=== PATIENT | female | born 1975 | race Caucasian/White ===

== ENCOUNTER 2017-08-27 19:37 | Emergency (ER) | payer BC ==
[~2017-08-27] VITALS: Ht 154.9 cm; Wt 68.0 kg
[~2017-08-27 19:37] MED LIST: ACET325T53
[2017-08-27 19:50] VITALS: BP 132/86
== END 2017-08-27 21:49 | disposition home or self-care (01) ==
LOC: ER 19:45
DX: J06.9 Acute upper respiratory infection, unspecified (principal)
CPT/HCPCS: 71010; 99283; A4606; Z7610

== ENCOUNTER 2018-05-22 00:52 | Emergency (ER) | payer SELFPAY ==
[~2018-05-22] VITALS: Ht 165.1 cm; Wt 63.5 kg
--- NOTE | 2018-05-22 01:00 | NUR ---
BIB FAMILY C/C OF ABDOMINAL PAIN, BILATERAL FLANK PAIN X 1DAY. AA/OX4. N/V PRESENT. AMBULATED TO HOSPITAL BED WITH STEADY GAIT. NO S/S OF SOB. SKIN PINK, WARM, DRY. VSS. NAD. STABLE CONDITION. FAMILY AT BEDSIDE. WILL CONTINUE TO MONITOR.
[2018-05-22] MEDS ORDERED: ONDANSETRON HCL/PF 4 MG/2 ML VIAL ONE (01:17)
[2018-05-22] MEDS ORDERED: MORPHINE SULFATE INJ 4 MG/ML DISP.SYRIN ONE (01:17)
[2018-05-22] MEDS ORDERED: ONDANSETRON HCL/PF 4 MG/2 ML VIAL IVP ONE (01:30)
[2018-05-22] MEDS ORDERED: IV NS 0.9% 1,000 ML BAG IV ONE (01:30)
[2018-05-22] MEDS ORDERED: MORPHINE SULFATE INJ 2 MG/ML DISP.SYRIN IV ONE (01:30)
[2018-05-22 01:38] LABS: BASOPHILS % (AUTO) 0.3 % (0.0-2.0); EOSINOPHILS % (AUTO) 1.6 % (0.0-6.0); HEMATOCRIT 38 % (33-45); HEMOGLOBIN 12.2 g/dL (11.5-14.8); LYMPHOCYTES # (AUTO) 1.2 /CMM (0.8-4.8); LYMPHOCYTES % (AUTO) 29.1 % (20.0-44.0); MEAN CORPUSCULAR HEMOGLOBIN 29 PG (26.0-33.0); MEAN CORPUSCULAR HGB CONC 32 g/dl (31.0-36.0); MEAN CORPUSCULAR VOLUME 91 fL (82-100); MONOCYTES # (AUTO) 0.4 /CMM (0.1-1.30); MONOCYTES % (AUTO) 9.1 % (2.0-12.0); NEUTROPHILS # (AUTO) 2.4 /CMM (1.8-8.9); NEUTROPHILS % (AUTO) 59.9 % (43.0-81.0); PLATELET COUNT (AUTO) 125 /CMM (150-450); RDW COEFFICIENT OF VARIATION 15.6 (11.5-15.0); RED BLOOD CELL COUNT(AUTO) 4.19 MIL/uL (4.0-5.2); WHITE BLOOD COUNT (AUTO) 4.1 K/uL (4.3-11.0)
[2018-05-22 01:41] LABS: APPEARANCE,URINE SL CLOUDY (CLEAR); BILIRUBIN,URINE NEGATIVE (NEGATIVE); BLOOD, URINE 3+ Ery/uL (NEGATIVE); COLOR,URINE YELLOW (YELLOW); KETONES,URINE TRACE (NEGATIVE); LEUKOCYTE ESTERASE ,URINE NEGATIVE (NEGATIVE); NITRITE, URINE NEGATIVE (NEGATIVE); PROTEIN,URINE 1+ mg/dl (NEGATIVE); UGLUCOSE NEGATIVE (NEGATIVE); UROBILINOGEN,URINE 0.2 EU/dL (0.2)
[2018-05-22 01:45] LABS: CALCIUM, SERUM 9.1 mg/dL (8.5-10.1); CREATININE 1.4 mg/dL (0.6-1.3); POTASSIUM 3.1 mmol/L (3.5-5.1)
[2018-05-22 01:50] LABS: ALBUMIN 3.9 g/dL (3.4-5.0); BILIRUBIN,DIRECT 0.1 mg/dL (0.0-0.2); BILIRUBIN,TOTAL 0.2 mg/dL (0.2-1.0)
[2018-05-22 01:51] LABS: BACTERIA,URINE None seen /HPF (None Seen); CALCIUM OXALATE CRYSTALS,UR Few /HPF (None Seen); RBC,URINE 21-50 /HPF (0-2); SQUAMOUS EPITHELIAL CELL,UR Few /HPF (None Seen)
--- NOTE | 2018-05-22 01:55 | NUR ---
Patient is resting comfortably in bed with eyes closed. Easily aroused. VSS. SAFETY MEASRUES IN PLACE. CALL LIGHT WITH REACH.
--- NOTE | 2018-05-22 02:00 | NUR ---
PT BROUGHT TO CT
[2018-05-22] MEDS ORDERED: KETOROLAC TROMETHAMINE INJ 30 MG/ML VIAL ONE (02:15)
[2018-05-22] MEDS ORDERED: KETOROLAC TROMETHAMINE INJ 30 MG/ML VIAL IV ONE (02:30)
--- NOTE | 2018-05-22 03:16 | NUR ---
PT CONTINUES TO REST COMFORTABLY. EASILY AROUSABLE. VSS. NAD STABLE CONDITION. SAFETY MEASURES IN PLACE. CALL LIGHT WITHIN REACH.
--- NOTE | 2018-05-22 03:28 | NUR ---
Patient discharged to home in stable condition. Written and verbal after care instructions given. Patient verbalizes understanding of instruction. IV removed. Catheter intact and site benign. Pressure and 4x4 applied to site. No bleeding noted. AMBULATED WITH STEADY GAIT. VSS. NAD. 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
[2018-05-22 03:30] VITALS: BP 110/70
== END 2018-05-22 03:30 | disposition home or self-care (01) ==
LOC: ER 00:55
DX: N20.0 Calculus of kidney (principal)
CPT/HCPCS: 36415; 80048-TC; 80076-TC; 81000-TC; 83690-TC; 84703-TC; 85025-TC; A4606; J1885; J2270; J2405; J7030; Z7610

== ENCOUNTER 2018-10-25 10:21 | Emergency (ER) | payer SELFPAY ==
[~2018-10-25] VITALS: Ht 152.4 cm; Wt 63.5 kg
[2018-10-25 10:30] VITALS: BP 131/76
[2018-10-25] MEDS ORDERED: diphenhydrAMINE HCL 50 MG/ML VIAL ONE (10:44)
[2018-10-25] MEDS ORDERED: FAMOTIDINE (20 MG) 20 MG TABLET ONE (10:45)
[2018-10-25] MEDS ORDERED: predniSONE 20 MG TABLET ONE (10:45)
[2018-10-25] MEDS ORDERED: hydrOXYzine 10 MG TABLET ONE (10:54)
[2018-10-25] MEDS ORDERED: predniSONE 10 MG TABLET PO ONE (11:00)
[2018-10-25] MEDS ORDERED: FAMOTIDINE (20 MG) 20 MG TABLET PO ONE (11:00)
[2018-10-25] MEDS ORDERED: hydrOXYzine 10 MG TABLET PO ONE (11:00)
[2018-10-25] MEDS ORDERED: diphenhydrAMINE HCL 50 MG/ML VIAL IM ONE (11:00)
--- NOTE | 2018-10-25 12:01 | NUR ---
Patient discharged to home in stable condition. Written and verbal after care instructions given. Patient verbalizes understanding of instruction.
== END 2018-10-25 12:34 | disposition home or self-care (01) ==
LOC: ER 10:23
DX: L50.9 Urticaria, unspecified (principal)
CPT/HCPCS: 96372; 99284; A4606; J1200; J7512; Q0177

== ENCOUNTER 2022-02-19 03:08 | Emergency (ER) | payer SELFPAY ==
[~2022-02-19] VITALS: Ht 152.4 cm; Wt 72.6 kg
--- NOTE | 2022-02-19 03:26 | NUR ---
PT BIBSELF C/O SINUS PAIN AND PRESSURE X 1 MONTH. PT AAOX4 BREATHING EVENLY AND UNLABORED. PT ATTACHED TOMONITOR AND POX. PT ALSO C/O LEFT LEG SWELLING. PT DENIES TRAUMA. UPON ASSESSMENT, LEFT ANKLE SLIGHTLY MORE SWOLLEN THAN RT. WILL CONTINUE TO MONITOR.
[2022-02-19] MEDS ORDERED: PSEUDOEPHEDRINE HCL 30 MG TABLET PO ONE (03:30)
[2022-02-19] MEDS ORDERED: AZIT250T PO (03:32)
[2022-02-19] MEDS ORDERED: PSEUDOEPHEDRINE HCL 30 MG TABLET ONE (03:45)
--- NOTE | 2022-02-19 04:18 | NUR ---
called radiology for US
--- NOTE | 2022-02-19 04:37 | NUR ---
CALLED RADIOLOGY TO F/U ON US ETA
--- NOTE | 2022-02-19 04:43 | NUR ---
US AT BEDSIDE
--- NOTE | 2022-02-19 05:46 | NUR ---
CALLED RO TO HAVE IMAGES READ
--- NOTE | 2022-02-19 05:57 | NUR ---
Patient discharged to home in stable condition. Written and verbal after care instructions given. Patient verbalizes understanding of instruction. pT ambulatory with a steady gait
[2022-02-19 06:02] VITALS: BP 122/80
== END 2022-02-19 05:57 | disposition home or self-care (01) ==
LOC: ER 03:17
DX: J32.0 Chronic maxillary sinusitis (principal); Z71.1 Person with feared health complaint in whom no diagnosis is made; R22.43 Localized swelling, mass and lump, lower limb, bilateral
CPT/HCPCS: 71045-TC; 93971-TC

== ENCOUNTER 2023-08-09 17:43 | Emergency (ER) | payer MEDICAID, OTHER ==
[~2023-08-09] VITALS: Ht 160 cm; Wt 74.8 kg
[~2023-08-09 17:43] MED LIST changes: +AZIT250T PO
[2023-08-09] MEDS ORDERED: KETOROLAC TROMETHAMINE 15 MG/ML VIAL IM ONE (19:30)
[2023-08-09] MEDS ORDERED: ACETAMINOPHEN ES 500 MG TABLET ONE (20:12)
[2023-08-09] MEDS ORDERED: CYCLOBENZAPRINE 10 MG TABLET ONE (20:13)
[2023-08-09] MEDS ORDERED: IBUPROFEN 400 MG TABLET ONE (20:13)
[2023-08-09] MEDS ORDERED: IBUPROFEN 400 MG TABLET PO ONE (20:30)
[2023-08-09] MEDS ORDERED: CYCLOBENZAPRINE 10 MG TABLET PO ONE (20:30)
[2023-08-09] MEDS ORDERED: ACETAMINOPHEN ES 500 MG TABLET PO ONE (20:30)
[2023-08-09] MEDS ORDERED: CYCL5TAB PO (20:39)
[2023-08-09] MEDS ORDERED: IBUP-1955 PO (20:39)
[2023-08-09] MEDS ORDERED: ACET-2605 PO (20:39)
[2023-08-09 20:55] VITALS: BP 137/85; TEMP 98.4; O2SAT 100
== END 2023-08-09 20:56 | disposition home or self-care (01) ==
LOC: ER 17:55
DX: M54.2 Cervicalgia (principal); M25.512 Pain in left shoulder; M79.632 Pain in left forearm; V43.52XA Car driver injured in collision with other type car in traffic accident, initial encounter; Y93.89 Activity, other specified; Y92.89 Other specified places as the place of occurrence of the external cause; Y99.8 Other external cause status
CPT/HCPCS: 73030-TC; 73060-TC; 73090-TC

== ENCOUNTER 2023-08-11 15:37 | Emergency (ER) | payer MEDICAID ==
[~2023-08-11] VITALS: Ht 160 cm; Wt 74.8 kg
[~2023-08-11 15:37] MED LIST changes: +ACET-2605 PO; +CYCL5TAB PO; +IBUP-1955 PO
[2023-08-11 19:39] VITALS: BP 120/75; TEMP 98; O2SAT 100
== END 2023-08-11 16:55 | disposition home or self-care (01) ==
LOC: ER 15:40
DX: S20.01XA Contusion of right breast, initial encounter (principal); V69.9XXA Occupant (driver) (passenger) of heavy transport vehicle injured in unspecified traffic accident, initial encounter; Y93.89 Activity, other specified; Y92.89 Other specified places as the place of occurrence of the external cause; Y99.8 Other external cause status